=== PATIENT | female | born 1995 | race American Indian/Alaskan Native ===

== ENCOUNTER 2021-05-31 13:39 | Outpatient (CLI) | payer OTHER ==
[2021-05-31] MEDS ORDERED: PRENATAL CAPLE1 EAC1 PO (13:50)
[2021-05-31] MEDS ORDERED: ENDOMETRIN100 MG IJ (13:50)
== END 2021-05-31 17:58 | disposition home or self-care (01) ==
LOC: OBS/DEL 13:39
PROVIDERS: ATTEND Obstetrics & Gynecology
DX: O26.892 Other specified pregnancy related conditions, second trimester (principal); R10.2 Pelvic and perineal pain; Z3A.25 25 weeks gestation of pregnancy

== ENCOUNTER 2021-07-26 16:30 | Outpatient (CLI) | payer OTHER ==
[~2021-07-26 16:30] MED LIST: ENDOMETRIN100 MG IJ; PRENATAL CAPLE1 EAC1 PO
== END 2021-07-27 18:24 | disposition home or self-care (01) ==
LOC: OBS/DEL 16:30
PROVIDERS: ATTEND Obstetrics & Gynecology
DX: O46.8X3 Other antepartum hemorrhage, third trimester (principal); O26.853 Spotting complicating pregnancy, third trimester; O35.0XX0 Maternal care for (suspected) central nervous system malformation in fetus, not applicable or unspecified; O35.3XX0 Maternal care for (suspected) damage to fetus from viral disease in mother, not applicable or unspecified; Z3A.34 34 weeks gestation of pregnancy

== ENCOUNTER 2022-05-03 08:45 | Emergency (ER) | payer OTHER ==
[~2022-05-03] VITALS: Ht 154.9 cm; Wt 61.7 kg
== END 2022-05-03 15:34 | disposition home or self-care (01) ==
LOC: ER 08:45
DX: N93.9 Abnormal uterine and vaginal bleeding, unspecified (principal); R10.2 Pelvic and perineal pain